=== PATIENT | female | born 1995 | race Caucasian/White ===

== ENCOUNTER 2017-07-10 07:16 | Day surgery (SDC) | payer OTHER, MEDICAID ==
[2017-07-09 10:24] VITALS: BMI 21.2
[2017-07-10] MEDS ORDERED: Propofol 10 mg/ml Inj (20 ML) ONE (08:30)
[2017-07-10] MEDS ORDERED: ceFAZolin IV 1 gm in Dextrose 1 GM/50 ML BAG IVPB ONE (08:35)
[2017-07-10] MEDS ORDERED: Lactated Ringer's 1,000 ML IV ONE (08:38)
[2017-07-10] MEDS ORDERED: HYDROmorphone 0.5 mg/0.5 ml ISec IVP PRN (09:04)
[2017-07-10 09:28] VITALS: TEMP 97.6
--- NOTE | 2017-07-10 09:42 | PCM.SURG1 ---
Surgeon's Initial Post Op Note - Surgeon's Notes Surgeon: dr jonas Assistant Plant Control Operator: none Type of Anesthesia: General LMA Anesthesia Administered By: dr moseley Pre-Operative Diagnosis: 21 yr with AUB R/O Polyp Operative Findings: see the op reort Post-Operative Diagnosis: same with submusal fibroid Operation Performed: myasure/ d &c, hyterscopy Specimen/Specimens Removed: ecc. emc. fibroid Estimated Blood Loss: EBL {In ML}: 20 Blood Products Given: N/A Drains Used: No Drains Post-Op Condition: Good Date of Surgery/Procedure: 07/10/17 Time of Surgery/Procedure: 10:00
[2017-07-10 11:32] VITALS: BP 116/78; PULSE 88; RESP 16; O2SAT 97
--- NOTE | 2017-07-10 16:44 | OP ---
PREOPERATIVE DIAGNOSIS: A 21-year-old 0, para 0 with abnormal uterine bleeding, rule out polyp. POSTOPERATIVE DIAGNOSIS: A 21-year-old 0, para 0 with abnormal uterine bleeding, rule out polyp. SURGEON: Sky Sweeney MD. SERVICE CENTER TECHNICIAN: None. ANESTHESIA: General anesthesia. ANESTHESIOLOGIST: Dr. Mistry. COMPLICATIONS: None. ESTIMATED BLOOD LOSS: 20 mL. DEFICIT: 50 mL. PROCEDURE PERFORMED: D and C, hysteroscopy, and MyoSure. DESCRIPTION OF PROCEDURE: After informed consent was obtained, the patient was brought to the operating room and placed on the table where general anesthesia was given. When the anesthesia was found to be sufficient, the patient was prepped and draped in the normal sterile fashion. Examination under anesthesia found uterus to be 6 week size. No pelvic or adnexal masses. Anterior lip of the cervix was grasped with a tenaculum. Gentle dilatation of the cervix was done. There was a submucosal fibroid on the left side of the wall that was removed using MyoSure. MyoSure had to be used to remove the fibroid and sent to Pathology. Then, the sharp curettage from all the way to the uterus was done. Polypoid tissues came out and then the ECC was done and sent to Pathology. Tenaculum was removed. The patient tolerated the procedure well. Lap, sponge, and instrument counts were correct x2. Sky Sweeney MD
== END 2017-07-10 12:20 | disposition home or self-care (01) ==
LOC: C.SDS 07:16
PROVIDERS: ATTEND Obstetrics & Gynecology
DX: D25.0 Submucous leiomyoma of uterus (principal); N84.0 Polyp of corpus uteri; N93.9 Abnormal uterine and vaginal bleeding, unspecified; J45.909 Unspecified asthma, uncomplicated
CPT/HCPCS: 36415; 58561; 84702; 88305; J0690; J1170; J1885; J2405; J2704; J3010; J7120

== ENCOUNTER 2017-12-07 23:39 | Emergency (ER) | payer OTHER, MEDICAID ==
[2017-12-07 23:39] VITALS: BMI 21.2
[2017-12-07] MEDS ORDERED: Albuterol-Ipratrop 3 mg / 0.5 (3 ml) UD INH STA (23:50)
[2017-12-07] MEDS ORDERED: Albuterol-Ipratrop 3 mg / 0.5 (3 ml) UD ONE (23:54)
[2017-12-08] MEDS ORDERED: Albuterol-Ipratrop 3 mg / 0.5 (3 ml) UD INH STA ×3 (00:02→02:26)
[2017-12-08] MEDS ORDERED: Sodium Chloride 0.9% 1,000 ML IV ONE (00:05)
--- NOTE | 2017-12-08 00:08 | C.PDOC ---
History Of Present Illness 22 yo female w/PMHx of asthma , no hx of intubation or recent ICU admission, come in for evaluation of gradual onset of SOB, asthma exacerbation for past few weeks. Pt sts, " was able to control it with nebulizer machine but since yesterday chest tightness worse, developed wheezing". Otherwise, pt denies recent illness, fever, chills, headache, dizziness, drooling, dysphagia, CP, palpitation, abd. pain, N/V/D, back pain, UTI sx. Ambulate to ED for evaluation , mild resp. distress noted. Time Seen by Provider: 12/07/17 23:45 Chief Complaint (Nursing): Shortness Of Breath History Per: Patient Onset/Duration Of Symptoms: Gradual Past Medical History Reviewed: Historical Data, Nursing Documentation, Vital Signs Vital Signs: Last Vital Signs Temp 97.9 F 12/08/17 02:09 Pulse 100 H 12/08/17 02:09 Resp 16 12/08/17 02:09 BP 127/79 12/08/17 02:09 Pulse Ox 96 12/08/17 02:26 - Medical History PMH: Anemia, Asthma (never hospitalized) Denies: Chronic Kidney Disease - [employer] Procedures INJECT/INFUSE NEC (11/03/13) Family History: States: No Known Family Hx - Social History Hx Alcohol Use: No Hx Substance Use: No - Immunization History Hx Tetanus Toxoid Vaccination: No Hx Influenza Vaccination: No Hx Pneumococcal Vaccination: No Review Of Systems Except As Marked, All Systems Reviewed And Found Negative. Constitutional: Negative for: Fever, Chills Eyes: Negative for: Vision Change ENT: Negative for: Nose Discharge, Nose Congestion, Throat Pain, Throat Swelling Cardiovascular: Negative for: Chest Pain, Palpitations Respiratory: Positive for: Cough, Shortness of Breath, Wheezing Gastrointestinal: Negative for: Nausea, Vomiting, Abdominal Pain, Diarrhea Genitourinary: Negative for: Dysuria Skin: Negative for: Rash Neurological: Negative for: Weakness, Numbness, Altered Mental Status, Headache , Dizziness Physical Exam - Physical Exam Appears: Well, No Acute Distress Skin: Normal Color, Warm, Dry, No Rash Head: Normacephalic Eye(s): bilateral: PERRL Ear(s): Bilateral: Normal Nose: No Discharge Oral Mucosa: Moist, No Drooling Tongue: Normal Appearing Lips: Normal Appearing Throat: No Erythema, No Drooling Neck: Trachea Midline, Supple Cardiovascular: Rhythm Regular Respiratory: No Decreased Breath Sounds, Accessory Muscle Use, No Rales, No Rhonchi, No Stridor, Wheezing (diffuse B/L, expiratory) Gastrointestinal/Abdominal: Soft, No Tenderness, No Distention, No Guarding Back: No CVA Tenderness Extremity: Normal ROM, No Deformity, No Swelling Neurological/Psych: Oriented x3, Normal Speech ED Course And Treatment - Laboratory Results Result Diagrams: 12/08/17 00:31 12/08/17 00:31 Urine POC: Negative O2 Sat by Pulse Oximetry: 96 Pulse Ox Interpretation: Normal Progress Note: Pt was OBS in ED for 4 hours. On re-evaluation, pt reports mod improvement in sx, pt reports mod improvement in chest tightness. PulsEOx 99% RA, no tahypnea. Afebrile, hemodynamicaly stable. Non-toxic. Ambulatory in ED w/o dyspnea. Neck: Supple, (-) JVD, (-) carotid bruits B/L, (-) meningeal sign. ENT: no acute findings. Lungs: Mod improvement in exp wheezing B/L, BS equal B/L. Abd: benign. Neuorlogicaly intact. Blood work review, mild leukocytosis noted with left shift. UA- c/w UTI. Pt has clinical findings c/w asthma exacerbation, UTI. Pt advised. ref. to f/u with PMD in 2-3 days for re- eavl. return to ED if any worsening or new changes. Disposition Counseled Patient/Family Regarding: Studies Performed, Diagnosis, Need For Followup, Rx Given - Disposition Referrals: [facility] [Outside] Gee Barber MD [Staff Provider] - Disposition: HOME/ ROUTINE Disposition Time: 03:24 Condition: STABLE Additional Instructions: ENCOURAGE FLUIDS TAKE MEDICATION PRESCRIBED NEBULIZER TREATMENT EVERY 6 HOURS FOR 2-3 DAYS FOLLOW UP WITH PMD, PULMONOLOGY IN 2-3 DAYS FOR RE-EVALUATION. RETURN TO ED IF ANY WORSENING OR NEW CHANGES. Prescriptions: Albuterol HFA [Ventolin HFA 90 mcg/actuation (8 g)] 1 puff IH Q6 #1 inhaler Cefpodoxime [Vantin] 400 mg PO BID #28 tab Prednisone [Deltasone] 40 mg PO DAILY #6 tablet Instructions: Asthma (ED), Urinary Tract Infection in Women (ED) Forms: [employer] (Turkmen) - Clinical Impression Clinical Impression: UTI (urinary tract infection), Asthma
[2017-12-08] MEDS ORDERED: Magnesium Sulfate 1 gm in D5W 1 GM/100 ML BAG IVPB ONE ×4 (00:30→02:19)
[2017-12-08 00:36] LABS: BASO # 0.2 K/uL (0.0-0.2); EOS # 1.5 K/uL (0.0-0.7); EOS % 9.9 % (0.0-4.0); HCG,QUALITATIVE URINE NEGATIVE (NEGATIVE); HEMOGLOBIN 13.9 g/dL (11.0-16.0); LYMPH # 4.1 K/uL (1.0-4.3); MEAN CELL VOLUME 81.1 fL (81.0-99.0); MEAN CORPUSCULAR HEMOGLOBIN 27.1 pg (27.0-31.0); MEAN CORPUSCULAR HGB CONC 33.4 g/dL (33.0-37.0); MEAN PLATELET VOLUME 7.7 fL (7.2-11.7); MONO # 1.5 K/uL (0.0-0.8); MONO % 9.5 % (0.0-10.0); NEUT # 8.1 K/uL (1.8-7.0); NEUT % 52.6 % (50.0-75.0); RBC 5.14 Mil/uL (3.80-5.20); RED CELL DISTRIBUTION WIDTH 14.1 % (11.5-14.5); WHITE BLOOD COUNT 15.4 K/uL (4.8-10.8)
[2017-12-08 00:41] LABS: SQUAMOUS EPITHIAL 9 /hpf (0-5); URINE BILIRUBIN NEGATIVE (NEGATIVE); URINE BLOOD 3+ (NEGATIVE); URINE CLARITY Clear (Clear); URINE COLOR Yellow (YELLOW); URINE GLUCOSE (UA) NORMAL (Normal); URINE LEUKOCYTE ESTERASE 2+ Leu/uL (Negative); URINE NITRATE NEGATIVE (NEGATIVE); URINE PROTEIN NEGATIVE (NEGATIVE)
[2017-12-08 01:07] LABS: CALCIUM 8.7 mg/dl (8.6-10.4); GFR AFRICAN-AMERICAN > 60; GFR NON-AFRICAN AMERICAN > 60
[2017-12-08 01:12] LABS: BLOOD UREA NITROGEN 13 mg/dL (7-17)
[2017-12-08] MEDS ORDERED: Albuterol-Ipratrop 3 mg / 0.5 (3 ml) UD ONE (03:00)
[2017-12-08 03:41] VITALS: BP 117/71; PULSE 92; RESP 18; TEMP 98.8; O2SAT 99
--- NOTE | 2017-12-08 09:54 | RAD ---
Chest x-ray two views History: Shortness of breath. Comparison: None available. Findings: No focal infiltrate or effusion. Heart size within normal limits. Impression No focal infiltrate or effusion.
== END 2017-12-08 03:44 | disposition home or self-care (01) ==
LOC: C.ER 23:39
DX: J45.909 Unspecified asthma, uncomplicated (principal); N39.0 Urinary tract infection, site not specified
CPT/HCPCS: 71046; 80048; 81001; 84703; 85025; 94640; 96365; 96368; 96376; 99285; J0696; J3475; J7040

== ENCOUNTER 2018-01-28 15:42 | Emergency (ER) | payer OTHER, MEDICAID ==
[2018-01-28 15:42] VITALS: BMI 21.2
[2018-01-28 15:58] VITALS: RESP 18
[2018-01-28 16:24] LABS: BASO # 0.1 K/uL (0.0-0.2); BASO % 0.6 % (0.0-2.0); EOS # 0.9 K/uL (0.0-0.7); EOS % 5.2 % (0.0-4.0); HEMOGLOBIN 14.1 g/dL (11.0-16.0); LYMPH # 2.4 K/uL (1.0-4.3); LYMPH % 14.3 % (20.0-40.0); MEAN CELL VOLUME 81.4 fL (81.0-99.0); MEAN CORPUSCULAR HEMOGLOBIN 26.6 pg (27.0-31.0); MEAN CORPUSCULAR HGB CONC 32.7 g/dL (33.0-37.0); MEAN PLATELET VOLUME 7.5 fL (7.2-11.7); MONO # 1.3 K/uL (0.0-0.8); NEUT # 12.2 K/uL (1.8-7.0); NEUT % 71.9 % (50.0-75.0); RBC 5.28 Mil/uL (3.80-5.20); RED CELL DISTRIBUTION WIDTH 13.7 % (11.5-14.5); WHITE BLOOD COUNT 16.9 K/uL (4.8-10.8)
[2018-01-28 16:39] LABS: ALB/GLOB RATIO 1.2 (1.0-2.1); ALBUMIN 4.5 g/dL (3.5-5.0); ALT/SGPT 43 U/L (9-52); AST/SGOT 40 U/L (14-36); BLOOD UREA NITROGEN 9 mg/dL (7-17); CALCIUM 9.3 mg/dl (8.6-10.4); GFR AFRICAN-AMERICAN > 60; GFR NON-AFRICAN AMERICAN > 60
--- NOTE | 2018-01-28 16:48 | C.PDOC ---
History Of Present Illness 22 y/o female, , presents to the ER for vaginal spotting. Patient states that her LMP was on 12/09/17 and she is 7 weeks . Patient reports that she saw her TARRING MACHINE OPERATOR Dr. Sweeney last week. She notes that she had an US but " it was too early to see anything." Time Seen by Provider: 01/28/18 15:57 Chief Complaint (Nursing): Female Genitourinary History Per: Patient History/Exam Limitations: no limitations Onset/Duration Of Symptoms: Days Current Symptoms Are (Timing): Still Present Severity: Moderate Reports Recently: Treated By A Physician Past Medical History Reviewed: Historical Data, Nursing Documentation, Vital Signs Vital Signs: Last Vital Signs Temp 97.3 F L 01/28/18 15:51 Pulse 106 H 01/28/18 15:51 Resp 18 01/28/18 15:51 BP 135/86 01/28/18 15:51 Pulse Ox 100 01/28/18 18:41 - Medical History PMH: Anemia, Asthma (never hospitalized) Denies: Chronic Kidney Disease Other Surgeries: Hx of surgeries - [employer] Procedures INJECT/INFUSE NEC (11/03/13) Family History: States: No Known Family Hx - Social History Hx Alcohol Use: No Hx Substance Use: No - Immunization History Hx Tetanus Toxoid Vaccination: No Hx Influenza Vaccination: No Hx Pneumococcal Vaccination: No Review Of Systems Except As Marked, All Systems Reviewed And Found Negative. Constitutional: Negative for: Fever, Chills Gastrointestinal: Negative for: Abdominal Pain Genitourinary: Positive for: Vaginal Bleeding, Other (vaginal spotting) Physical Exam - Physical Exam Appears: Non-toxic, No Acute Distress Skin: Normal Color, Warm Head: Atraumatic, Normacephalic Eye(s): bilateral: Normal Inspection Nose: Normal Oral Mucosa: Moist Neck: Supple Chest: Symmetrical Cardiovascular: Rhythm Regular Respiratory: Normal Breath Sounds, No Accessory Muscle Use, No Rales, No Rhonchi , No Wheezing Gastrointestinal/Abdominal: Normal Exam, Soft, No Tenderness Extremity: Normal ROM Neurological/Psych: Oriented x3, Normal Speech, Normal Motor, Normal Sensation Gait: Steady ED Course And Treatment - Laboratory Results Result Diagrams: 01/28/18 16:19 01/28/18 16:19 Lab Interpretation: No Acute Changes Urine POC: Positive O2 Sat by Pulse Oximetry: 100 (RA) Pulse Ox Interpretation: Normal Progress Note: Case discussed with Dr Sweeney who request UA. Patient evaluated in ED by Dr Sweeney Medical Decision Making Medical Decision Making: Plan: --Labs --UA --US-OB Transvaginal US Disposition Discussed With Dr.: Sky Sweeney Doctor Will See Patient In The: Office Counseled Patient/Family Regarding: Studies Performed, Diagnosis, Need For Followup, Rx Given - Disposition Referrals: Sky Sweeney MD [Staff Provider] - Disposition: HOME/ ROUTINE Disposition Time: 19:00 Condition: STABLE Additional Instructions: Return to ED if any increease symptoms Prescriptions: Nitrofurantoin Macrocrystals [Macrobid] 1 cap PO BID #14 cap Instructions: Bleeding With Forms: [facility] (Italian) - POA Present On Arrival: None - Clinical Impression Clinical Impression: UTI (urinary tract infection), Vaginal bleeding in - PA / DIRECTOR OF PUBLIC SAFETY / Resident Statement MD/DO has reviewed & agrees with the documentation as recorded. - Scribe Statement The provider has reviewed the documentation as recorded by the Rose Lowe Provider Attestation All medical record entries made by the Rose were at my direction and personally dictated by me. I have reviewed the chart and agree that the record accurately reflects my personal performance of the history, physical exam, medical decision making, and the department course for this patient. I have also personally directed, reviewed, and agree with the discharge instructions and disposition.
[2018-01-28 16:54] LABS: HCG,QUALITATIVE URINE POSITIVE (NEGATIVE)
[2018-01-28 17:02] LABS: SQUAMOUS EPITHIAL 21 /hpf (0-5); URINE BACTERIA FEW (<OCC); URINE BILIRUBIN NEGATIVE (NEGATIVE); URINE BLOOD 3+ (NEGATIVE); URINE CLARITY Hazy (Clear); URINE COLOR Yellow (YELLOW); URINE GLUCOSE (UA) NORMAL (Normal); URINE LEUKOCYTE ESTERASE 3+ Leu/uL (Negative); URINE PROTEIN NEGATIVE (NEGATIVE); URINE UROBILINOGEN NORMAL mg/dL (0.2-1.0)
--- NOTE | 2018-01-28 19:05 | US ---
Indication: Bleeding Comparison: None available. Technique: Real-time transabdominal pelvic ultrasound was performed. In addition a transvaginal pelvic ultrasound was necessary to better depict pelvic anatomy. Findings: The uterus measures approximately 9.9 x 4.9 x 8.2 cm. Question bicornuate uterus anatomy. Anteverted. Cervix length measures approximately 3.1 cm. This is a twin gestation. 2.3 x 1.0 x 1.6 cm hypodense region adjacent to gestational sac A, likely small subchorionic hemorrhage. Fetus A: 4 mm yolk sac. The gestational sac measures 1.6 cmcm and is compatible with a gestational age of 5 weeks 6 days. The crown-rump length measures 0.4 cm, and is compatible with a gestational age of 6 weeks 1 day. There is heart motion which measured 111 BPM. Fetus B: 4 mm yolk sac. The gestational sac measures 1.8cm and is compatible with a gestational age of 6 weeks 1 day. The crown-rump length measures 0.6 cm, and is compatible with a gestational age of 6 weeks 3 days. There is heart motion which measured 119 BPM. The left ovary measures 4.0 x 2.2 x 3.7 cm. The right ovary measures 3.5 x 2.0 x 3.2 cm. Blood flow is demonstrated to both ovaries. Small pelvic free fluid, cul-de-sac. Impression: Question bicornuate uterus anatomy. 2.3 x 1.0 x 1.6 cm hypodense region adjacent to gestational sac A, likely small subchorionic hemorrhage. This is a twin gestation. Fetus A: Estimated gestational sac measures 1.6 cm cm and is compatible with a gestational age of 5 weeks 6 days. The crown-rump length measures 0.4 cm, and is compatible with a gestational age of 6 weeks 1 day. There is heart motion which measured 111 BPM. Fetus B: Estimated gestational sac measures 1.8 cm and is compatible with a gestational age of 6 weeks 1 day. The crown-rump length measures 0.6 cm, and is compatible with a gestational age of 6 weeks 3 days. There is heart motion which measured 119 BPM. Small pelvic free fluid, cul-de-sac. Advise an anomaly screen at 16-18 weeks gestational age.
[2018-01-28 19:08] VITALS: BP 128/79; PULSE 95; TEMP 98.4; O2SAT 99
--- NOTE | 2018-01-28 20:05 | CP.PCM.CON ---
History of Present Illness - History of Present Illness History of Present Illness: 22 yr at 6weeks came with vaginal bleeding started berta, no lots, no pain. pt has spotting from few dsys. 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 Review of Systems - Reproductive: Female Reproductive:Female: Abnormal Vaginal Bleeding Past Patient History - Past Medical History & Family History Past Medical History?: Yes - Past Social History Smoking Status: Never Smoked - CARDIAC Hx Cardiac Disorders: Yes Hx Heart Murmur: Yes - PULMONARY Hx Asthma: Yes (never hospitalized) - NEUROLOGICAL Hx Neurological Disorder: No - HEENT Hx HEENT Problems: No - RENAL Hx Chronic Kidney Disease: No - ENDOCRINE/METABOLIC Hx Endocrine Disorders: No - HEMATOLOGICAL/ONCOLOGICAL Hx Anemia: Yes - INTEGUMENTARY Hx Dermatological Problems: No - MUSCULOSKELETAL/RHEUMATOLOGICAL Hx Musculoskeletal Disorders: No - GASTROINTESTINAL Hx Gastrointestinal Disorders: No - GENITOURINARY/GYNECOLOGICAL Hx Genitourinary Disorders: Yes (missed polyp) - PSYCHIATRIC Hx Substance Use: No - SURGICAL HISTORY Hx Surgeries: Yes Hx Dilation and Curettage: Yes - ANESTHESIA Hx Anesthesia: Yes Hx Anesthesia Reactions: No Hx Malignant Hyperthermia: No Meds Home Medications: Home Medication List Medication Instructions Recorded Confirmed Type Nitrofurantoin Macrocrystals 1 cap PO BID #14 cap 01/28/18 Rx [Macrobid] Allergies/Adverse Reactions: Allergies Allergy/AdvReac Type Severity Reaction Status Date / Time No Known Allergies Allergy Verified 01/28/18 15:50 Results - Vital Signs Recent Vital Signs: Last Vital Signs Temp 98.4 F 01/28/18 19:06 Pulse 95 H 01/28/18 19:06 Resp 18 01/28/18 19:06 BP 128/79 01/28/18 19:06 Pulse Ox 99 01/28/18 19:06 - Labs Result Diagrams: 01/28/18 16:19 01/28/18 16:19 Labs: Laboratory Results - last 24 hr 01/28/18 01/28/18 01/28/18 16:19 16:19 16:19 WBC 16.9 H RBC 5.28 H Hgb 14.1 Hct 43.0 MCV 81.4 MCH 26.6 L MCHC 32.7 L RDW 13.7 Plt Count 308 MPV 7.5 Neut % (Auto) 71.9 Lymph % (Auto) 14.3 L [place] % (Auto) 8.0 Eos % (Auto) 5.2 H Baso % (Auto) 0.6 Neut # (Auto) 12.2 H Lymph # (Auto) 2.4 [place] # (Auto) 1.3 H Eos # (Auto) 0.9 H Baso # (Auto) 0.1 Sodium 139 Potassium 4.0 Chloride 104 Carbon Dioxide 21 L Anion Gap 18 BUN 9 Creatinine 0.7 Est GFR ( Amer) > 60 Est GFR (Non-Af Amer) > 60 Random Glucose 96 Calcium 9.3 Total Bilirubin 0.4 AST 40 H ALT 43 Alkaline Phosphatase 57 Total Protein 8.3 Albumin 4.5 Globulin 3.8 Albumin/Globulin Ratio 1.2 Beta HCG, Quant 974009.00 Urine Color Urine Clarity Urine pH Ur Specific [place] Urine Protein Urine Glucose (UA) Urine Ketones Urine Blood Urine Nitrate Urine Bilirubin Urine Urobilinogen Ur Leukocyte Esterase Urine WBC (Auto) Urine RBC (Auto) Ur Squamous Epith Cells Urine Bacteria Urine HCG, Qual Blood Type Antibody Screen 01/28/18 01/28/18 16:19 16:46 WBC RBC Hgb Hct MCV MCH MCHC RDW Plt Count MPV Neut % (Auto) Lymph % (Auto) [place] % (Auto) Eos % (Auto) Baso % (Auto) Neut # (Auto) Lymph # (Auto) [place] # (Auto) Eos # (Auto) Baso # (Auto) Sodium Potassium Chloride Carbon Dioxide Anion Gap BUN Creatinine Est GFR ( Amer) Est GFR (Non-Af Amer) Random Glucose Calcium Total Bilirubin AST ALT Alkaline Phosphatase Total Protein Albumin Globulin Albumin/Globulin Ratio Beta HCG, Quant Urine Color Yellow Urine Clarity Hazy Urine pH 5.0 Ur Specific [place] 1.021 Urine Protein Negative Urine Glucose (UA) Normal Urine Ketones Negative Urine Blood 3+ H Urine Nitrate Negative Urine Bilirubin Negative Urine Urobilinogen Normal Ur Leukocyte Esterase 3+ H Urine WBC (Auto) 51 H Urine RBC (Auto) 103 H Ur Squamous Epith Cells 21 H Urine Bacteria Few H Urine HCG, Qual Positive Blood Type O POSITIVE Antibody Screen Negative Assessment & Plan - Assessment and Plan (Free Text) Assessment: 22 yr at 6weeks twins/uti/vaginal bleeding Plan: plan no sex cont progesrone macrobid uine culutre no sex f/u in office on friday - Date & Time Date: 01/28/18 Time: 20:30
== END 2018-01-28 19:08 | disposition home or self-care (01) ==
LOC: C.ER 15:42
DX: O23.91 Unspecified genitourinary tract infection in pregnancy, first trimester (principal); O20.9 Hemorrhage in early pregnancy, unspecified; Z3A.01 Less than 8 weeks gestation of pregnancy

== ENCOUNTER 2018-03-25 07:38 | Day surgery (SDC) | payer OTHER ==
[2018-03-24 13:32] VITALS: BMI 22.1
[2018-03-25] MEDS ORDERED: Lactated Ringer's 1,000 ML IV ONE (09:35)
[2018-03-25] MEDS ORDERED: ePHEDrine 50 mg/ml Inj ONE (09:39)
[2018-03-25] MEDS ORDERED: Phenylephrine 10 mg/ml Inj ONE (09:41)
[2018-03-25] MEDS ORDERED: cefOXitin IV 1 gm in Dextrose 1 GM/50 ML BAG IVPB ONE (09:48)
--- NOTE | 2018-03-25 12:23 | PCM.SURG1 ---
Surgeon's Initial Post Op Note - Surgeon's Notes Surgeon: dr jonas Purchasing Intern: none Type of Anesthesia: Spinal Anesthesia Administered By: dr kelsey Pre-Operative Diagnosis: 22 yr at 15weeks cervical incompetence Operative Findings: cerclage procedure Post-Operative Diagnosis: same Operation Performed: cerclage procedure Specimen/Specimens Removed: none Estimated Blood Loss: EBL {In ML}: 20 Blood Products Given: N/A Drains Used: No Drains Post-Op Condition: Good Date of Surgery/Procedure: 03/25/18 Time of Surgery/Procedure: 12:00
[2018-03-25 14:15] VITALS: RESP 16
[2018-03-25 14:21] VITALS: TEMP 97.5
[2018-03-25] MEDS ORDERED: Lactated Ringer's 500 ML IV ONE (16:20)
[2018-03-25 17:27] VITALS: BP 134/72; PULSE 88; O2SAT 99
--- NOTE | 2018-03-27 07:51 | OP ---
PROCEDURE DATE: 03/25/2018 PREOPERATIVE DIAGNOSIS: A 22-year-old 2, para 0, at 15 weeks with cervical incompetence. POSTOPERATIVE DIAGNOSIS: A 22-year-old 2, para 0, at 15 weeks with cervical incompetence. SURGEON: Sky Sweeney MD VEGETABLE SCULLION: TYPE OF ANESTHESIA: Spinal. ANESTHESIA ADMINISTERED BY: Dr. Garcia. COMPLICATIONS: None. PROCEDURE PERFORMED: Cerclage procedure. DESCRIPTION OF PROCEDURE: After informed consent was obtained, the patient was brought to the operating room and placed on the table where spinal anesthesia was given. Once the anesthesia was found to be adequate, she was prepped and draped in the normal sterile fashion. First, the heart was heard , and the patient heard the heart rate too. After that, a sterile catheter was inserted and 50 mL of urine came out. After that, some Betadine was used to clean from inside and anterior lip of the cervix was grasped with a long Allis. After that, Prolene 3-0 was used to do the cerclage. It was started from 12, 12 to 9 o'clock, 9 o'clock to 6 o'clock, 6 o'clock to 3 o'clock, and 3 o'clock to 12 o' clock. After it was stitched, about 10 knots were placed, cervix was closed. There was only minimal bleeding, Monsel was applied. No bleeding anymore. The patient tolerated the procedure well. Lap, sponge, and instrument counts were correct x2. After the procedure was finished, the heart rate was heard again. It was 142. The patient heard it too. The patient tolerated the procedure well. Plan is to send to home on Flagyl. No sex. Bed rest. Follow up in the office in 10 days. Sky Sweeney MD
== END 2018-03-25 17:27 | disposition home or self-care (01) ==
LOC: C.SDS 07:38
PROVIDERS: ATTEND Obstetrics & Gynecology
DX: O34.33 Maternal care for cervical incompetence, third trimester (principal); Z3A.15 15 weeks gestation of pregnancy
CPT/HCPCS: 59320; J0694; J2370; J7120

== ENCOUNTER 2018-05-13 10:57 | Emergency (ER) | payer OTHER ==
[2018-03-24 13:32] VITALS: BMI 22.1
== END 2018-05-13 12:03 | disposition home health service (06) ==
LOC: C.EROB 10:57
DX: O26.872 Cervical shortening, second trimester (principal); Z3A.22 22 weeks gestation of pregnancy

== ENCOUNTER 2018-05-26 13:12 | Emergency (ER) | payer OTHER ==
--- NOTE | 2018-05-26 13:51 | OBHP ---
Datetime: 05/13/2018 12:13 IP Adm Impression: , intrauterine IP Chief Complaint Other: cervical shortining Admit Comment, IP Provider: at 22week send from the [facility] unit due to cervical shorting.pt alr easy had cerclage and using progestrone suppositry.no pain or vb. feels ok obhx 1 x 18 week loss pmh de med pnv, progestrne psh cerclage soch de sse no fluid ve closed a/p at 22weeks with cervial shorying pt had no pain or no ctxs pt was send to get admitted in [facility] consult. no nicu avalable in [facility]. pt understan an agreed. in agrrement. pt has all the reprts Pelvic Type - PN: Adequate Extremities - PN: Normal Abdomen - PN: Normal Back - PN: Normal Breast - PN: Normal Lungs - PN: Normal Heart - PN: Normal Thyroid - PN: Normal Neurologic - PN: Normal HEENT - PN: Normal General - PN: Normal Contraction Comments Provider: none Vital Signs Provider: Reviewed; Within Normal Limits Dilatation, Provider: 0 Effacement, Provider: 0 Station, Provider: -3 Genitourinary Exam: Normal DTRs - PN: Normal Datetime: 04/27/2018 23:23 EGA AdmitDate IP: 20.0
[2018-05-26] MEDS ORDERED: Betamethasone Soluspan 30 mg/5mL Inj Susp IM ONE (15:45)
--- NOTE | 2018-05-27 13:59 | OBHP ---
Datetime: 05/26/2018 18:54 IP Adm Impression: , intrauterine IP Chief Complaint Other: at 24 weeks Incompetente cervix IP Admit Plan: Discharge home Admit Comment, IP Provider: 22 yo female with an IUP at 24 weeks [address] Lehman's ofice with a prescription for Bethamethasone. Apparently pt had a f/up US for cervical lenght today and it was found shorter than before and it was sent to the hospital Pt denies any pains, contractions, LOF or VB and admits to adequate FM. tracing was reactive and no uterine activity noted. Pt received the first dose of Celestone IM and, as per Dr. Sweeney's instructions, she was discharg ed home to return in AM for her second dose. Pt advised to complete pelvic rest and to increase po water intake. D/C home in stable and satisfactory condition Will follow with her doctor in AM. Pelvic Type - PN: Adequate Extremities - PN: Normal Abdomen - PN: Normal Back - PN: Normal Breast - PN: Not Done Lungs - PN: Normal Heart - PN: Normal Thyroid - PN: Normal Neurologic - PN: Normal HEENT - PN: Normal General - PN: Normal FHR - Baseline A Provider: 120 Membranes, Provider: Intact Gestation - Est Wks by US: 24.0 EGA AdmitDate IP: 24.0 Vital Signs Provider: Reviewed; Within Normal Limits IP Chief Complaint: Other NICHD Variability Prov Fetus A: Moderate 6-25bpm NICHD Accel Fetus A IP Provider: 10X10 FHR Category Provider Fetus A: Category I NICHD Decel Fetus A IP Provider: None Genitourinary Exam: Normal DTRs - PN: Normal
== END 2018-05-26 15:42 | disposition home or self-care (01) ==
LOC: MERGE 13:12 → C.EROB 13:12
DX: O26.872 Cervical shortening, second trimester (principal); Z3A.24 24 weeks gestation of pregnancy
CPT/HCPCS: 99283; J0702

== ENCOUNTER 2018-05-27 15:15 | Emergency (ER) | payer OTHER ==
[2018-05-27 15:29] VITALS: BMI 23.7
[2018-05-27] MEDS ORDERED: Betamethasone Soluspan 30 mg/5mL Inj Susp IM STA (15:36)
--- NOTE | 2018-05-27 16:08 | OBDCSUM ---
Datetime: 05/27/2018 16:06 Discharged to, Provider: Home Follow up at, Provider: 2we Follow up in weeks, Provider: dr jonas Discharge Comment, Provider: no sex cont progerstrone suu po hy f/u Discharge Diagnosis Prov Other: 24 wek betamethasonr Datetime: 05/26/2018 15:42 Discharge Comment, Provider: no sex cont progerstrone suu po hy f/u
--- NOTE | 2018-05-27 16:09 | OBHP ---
Datetime: 05/27/2018 16:04 IP Adm Impression: , intrauterine IP Chief Complaint Other: betamethasone IP Admit Plan: Discharge home Admit Comment, IP Provider: at 24+weeks her for betamethsobe for short cervix,no pin or vb. pt got hr ist shot yesterday plan lisandro no sex cont progerstrone suu po hy f/u Pelvic Type - PN: Adequate Extremities - PN: Normal Abdomen - PN: Normal Back - PN: Normal Breast - PN: Normal Lungs - PN: Normal Heart - PN: Normal Thyroid - PN: Normal Neurologic - PN: Normal HEENT - PN: Normal General - PN: Normal FHR - Baseline A Provider: 140 Contraction Comments Provider: none NICHD Variability Prov Fetus A: Moderate 6-25bpm NICHD Accel Fetus A IP Provider: 10X10 FHR Category Provider Fetus A: Category I Genitourinary Exam: Normal DTRs - PN: Normal
[2018-05-27 20:19] VITALS: BP 135/75; PULSE 136; RESP 18; TEMP 97.7; O2SAT 97
== END 2018-05-27 16:05 | disposition home or self-care (01) ==
LOC: MERGE 15:15 → C.EROB 15:15
DX: O26.892 Other specified pregnancy related conditions, second trimester (principal); Z3A.24 24 weeks gestation of pregnancy
CPT/HCPCS: 99283; J0702